=== PATIENT | male | born 1980 | race Caucasian/White ===

== ENCOUNTER → 2016-09-16 | Outpatient (REF) ==
--- NOTE | 2016-09-16 13:50 | REP ---
PARTIAL LUMBAR SPINE, THREE VIEWS: HISTORY: Degenerative disc disease. There is no acute fracture. The L4-5 intravertebral disc is decreased in height, consistent with disc degeneration. There are 3 mm of retrolisthesis of L5 on S1. IMPRESSION: Degenerative change as described above. Signed by Jasen Tidwell MD 09/16/2016 02:23 P
== END ==
LOC: M SMT 12:30
PROVIDERS: ATTEND Internal Medicine
DX: Z02.71 Encounter for disability determination (principal)

== ENCOUNTER 2022-12-07 07:07 | Emergency (ER) | payer MEDICAID ==
[~2022-12-07] VITALS: Ht 167.6 cm; Wt 64.8 kg
[2022-12-07] MEDS ORDERED: BUPR8SUB (07:26)
[2022-12-07] MEDS ORDERED: ACET-683 PO (07:26)
[2022-12-07] MEDS ORDERED: SUMA100T2 PO (08:37)
[2022-12-07] MEDS ORDERED: ONDA4TAB6 PO (08:37)
[2022-12-07 10:09] VITALS: BP 158/102
== END 2022-12-07 10:10 | disposition home or self-care (01) ==
LOC: M ED 07:07
DX: G43.909 Migraine, unspecified, not intractable, without status migrainosus (principal); L55.0 Sunburn of first degree; Z88.8 Allergy status to other drugs, medicaments and biological substances; Z79.899 Other long term (current) drug therapy